=== PATIENT | female | born 1940 | race Caucasian/White ===

== ENCOUNTER 2019-12-14 22:15 | Inpatient (IN) ==
[2019-12-15 04:27] LABS: Adenovirus Not Detected (Not Detect); Bordetella Pertussis Not Detected (Not Detect); Chlamydophila pneumoniae Not Detected (Not Detect); Coronavirus 229E Not Detected (Not Detect); Coronavirus HKU1 Not Detected (Not Detect); Coronavirus NL63 Not Detected (Not Detect); Coronavirus OC43 Not Detected (Not Detect); Human Metapneumovirus Not Detected (Not Detect); Human Rhinovirus/Enterovirus Not Detected (Not Detect); Influenza A Subtype 2009 H1 Not Detected (Not Detect); Influenza B Not Detected (Not Detect); Mycoplasma pneumoniae Not Detected (Not Detect); Parainfluenza Virus 1 Not Detected (Not Detect); Parainfluenza Virus 2 Not Detected (Not Detect); Parainfluenza Virus 3 Not Detected (Not Detect); Parainfluenza Virus 4 Not Detected (Not Detect); Respiratory Syncytial Virus Not Detected (Not Detect); SARS-CoV-2 Not Detected (Not Detect)
[2019-12-15] MEDS ORDERED: Naloxone 0.4 MG/ML INJ IVP PRN (05:45)
[2019-12-15 05:55] LABS: ABG Base Excess -1 mEq/L (-2 to 3); ABG HCO3 23 mEq/L (21-27); ABG Oxygen Saturation 91 % (95-98); ABG PCO2 34 mmHg (35-45); ABG PH 7.44 pH Units (7.32-7.45); ABG PO2 59 mmHg (85-104); ABG TCO2 24 mEq/L (20-26); Blood Gas Modality ASSIST CONTROL; Blood Gas VT 500 cc
[2019-12-15] MEDS ORDERED: Artificial Tears SOLN 15 ML BOTTLE BOTH EYES PRN (06:03)
[2019-12-15] MEDS ORDERED: *HR* Dextrose 50 % in Water (Vial) 50 ML VIAL IVP PRN (06:38)
[2019-12-15] MEDS ORDERED: Dextrose Gel 15 GM/37.5 ML TUBE PO PRN ×2 (06:38)
[2019-12-15] MEDS ORDERED: D5% in Water 1,000 ML IVC PRN (06:38)
[2019-12-15] MEDS ORDERED: 0.9 % Sodium Chloride 1,000 ML IVC SCH (06:45)
[2019-12-15] MEDS ORDERED: Vancomycin 500 MG in 0.9 % Sodium Chloride 250 ML IVPB SCH (07:00)
[2019-12-15] MEDS ORDERED: Azithromycin 500 MG in 0.9 % Sodium Chloride 250 ML IVPB SCH (07:00)
[2019-12-15] MEDS ORDERED: Vancomycin 500 MG in 0.9 % Sodium Chloride Mini Bag 100 ML IVPB ONE (07:09)
[2019-12-15] MEDS ORDERED: Cefepime HCl 1,000 MG in Water for inj. (sterile) 10 ML IVP SCH (08:00)
[2019-12-15 08:06] LABS: Hematocrit 36.8 % (35.3-44.9); Immature Platelets 7.2 % (1.1-6.1); Mean Corpuscular HGB Conc 32.6 g/dL (31.6-35.5); Mean Corpuscular Hemoglobin 31.4 pg (28.0-33.3); Mean Corpuscular Volume 96.3 fL (83.0-100.0); Mean Platelet Volume 11.2 fL (9.4-12.4); Red Blood Count 3.82 M/mcL (3.82-4.97); White Blood Count 3.9 K/mcL (4.3-11.1)
[2019-12-15] MEDS: Norepinephrine 4 MG/254 ML IV.SOLN IVC SCH ×2 (08:32→17:17)
[2019-12-15] MEDS: FentaNYL (PF) 1,000 MCG/100 ML IV.SOLN IVC SCH ×2 (08:35→17:18)
[2019-12-15 08:36] LABS: Albumin 2.9 g/dL (3.5-5.7); Albumin/Globulin Ratio 1.1 (1.1-2.2); BUN/Creatinine Ratio 49 (6-26); Bilirubin,Direct 0.5 mg/dL (0.0-0.2); Bilirubin,Indirect 0.7 mg/dL (0.0-1.0); Bilirubin,Total 1.2 mg/dL (0.3-1.0); Blood Urea Nitrogen 35 mg/dL (8-23); Calcium 8.8 mg/dL (8.6-10.3); Carbon Dioxide 24 mEq/L (23-29); Chloride 105 mEq/L (98-107); Globulin 2.6 g/dL (2.4-3.5); Glucose 134 mg/dL (70-105); Magnesium 2.2 mg/dL (1.6-2.6); Osmolality,Calculated 294 (280-300); Potassium 3.8 mEq/L (3.5-5.1); Sodium 137 mEq/L (136-145); Total Protein 5.5 g/dL (6.4-8.9); eGFR For African Americans > 60 (> 60); eGFR For Non-African Americans > 60 (> 60)
[2019-12-15] MEDS: Pantoprazole 40 MG VIAL IVP SCH (08:36)
[2019-12-15] MEDS: Chlorhexidine Rinse 15 ML MOUTHWASH MM SCH ×2 (08:36→20:39)
[2019-12-15] MEDS: *HR* Heparin 5,000 UNIT/ML VIAL SQ SCH ×3 (08:37→23:50)
[2019-12-15] MEDS: Artificial Tears SOLN 15 ML BOTTLE BOTH EYES SCH ×5 (08:53→23:50)
[2019-12-15 09:02] LABS: Platelet Count 86 K/mcL (140-400)
[2019-12-15 09:09] LABS: Lymphocytes # 0.6 K/mcL (0.6-4.6); Monocytes # 0.2 K/mcL (0.0-1.3); Neutrophils # 2.6 K/mcL (1.6-8.9)
[2019-12-15 09:12] LABS: Platelet Estimate Slight Decrease (Normal); Toxic Granulation Present (Not Present)
[2019-12-15] MEDS: Insulin LISPRO 300 UNITS/3 ML VIAL SQ SCH ×3 (11:59→23:51)
[2019-12-15] MEDS ORDERED: Ringers Solution, Lactated 1,000 ML IVC SCH (14:15)
[2019-12-15] MEDS: Doxycycline 100 MG in 0.9 % Sodium Chloride Mini Bag 100 ML IVPB SCH (14:52)
[2019-12-15] MEDS: Meropenem 500 MG in Water for inj. (sterile) 10 ML IVP SCH (17:22)
[2019-12-16] MEDS: Ringers Solution, Lactated 1,000 ML IVC SCH ×4 (00:03→16:35)
[2019-12-16] MEDS: Artificial Tears SOLN 15 ML BOTTLE BOTH EYES SCH ×5 (04:13→20:30)
[2019-12-16] MEDS: Doxycycline 100 MG in 0.9 % Sodium Chloride Mini Bag 100 ML IVPB SCH (04:13)
[2019-12-16 04:29] LABS: Basophils % 0.2 %; Hematocrit 32.7 % (35.3-44.9); Hemoglobin 10.6 g/dL (11.5-15.4); Immature Granulocytes % 1.8 % (0-4); Lymphocytes # 0.4 K/mcL (0.6-4.6); Lymphocytes % 4.8 %; Mean Corpuscular HGB Conc 32.4 g/dL (31.6-35.5); Mean Corpuscular Hemoglobin 31.5 pg (28.0-33.3); Mean Corpuscular Volume 97.3 fL (83.0-100.0); Mean Platelet Volume 11.5 fL (9.4-12.4); Monocytes # 0.3 K/mcL (0.0-1.3); Platelet Count 110 K/mcL (140-400); Red Blood Count 3.36 M/mcL (3.82-4.97); Red Cell Distribution Width 14.4 % (11.5-14.5); Segmented Neutrophils % 90.2 %
[2019-12-16 04:31] LABS: White Blood Count 8.9 K/mcL (4.3-11.1)
[2019-12-16 04:46] LABS: Dohle Bodies Present (Not Present); Platelet Estimate Slight Decrease (Normal); Toxic Granulation Present (Not Present)
[2019-12-16 04:47] LABS: BUN/Creatinine Ratio 58 (6-26); Blood Urea Nitrogen 30 mg/dL (8-23); Calcium 8.6 mg/dL (8.6-10.3); Carbon Dioxide 26 mEq/L (23-29); Chloride 110 mEq/L (98-107); Glucose 110 mg/dL (70-105); Osmolality,Calculated 299 (280-300); Phosphorous 2.1 mg/dL (2.7-4.5); Potassium 3.5 mEq/L (3.5-5.1); Sodium 141 mEq/L (136-145); eGFR For African Americans > 60 (> 60); eGFR For Non-African Americans > 60 (> 60)
[2019-12-16 04:51] LABS: ABG Base Excess 1 mEq/L (-2 to 3); ABG HCO3 26 mEq/L (21-27); ABG Oxygen Saturation 98 % (95-98); ABG PCO2 42 mmHg (35-45); ABG PO2 100 mmHg (85-104); ABG TCO2 27 mEq/L (20-26); Blood Gas Modality ASSIST CONTROL; Blood Gas VT 350 cc
[2019-12-16] MEDS: FentaNYL (PF) 1,000 MCG/100 ML IV.SOLN IVC SCH (05:20)
[2019-12-16] MEDS: Meropenem 500 MG in Water for inj. (sterile) 10 ML IVP SCH (06:29)
[2019-12-16] MEDS: Insulin LISPRO 300 UNITS/3 ML VIAL SQ SCH ×3 (06:30→18:11)
[2019-12-16] MEDS: Pantoprazole 40 MG VIAL IVP SCH (08:25)
[2019-12-16] MEDS: *HR* Heparin 5,000 UNIT/ML VIAL SQ SCH ×2 (08:25→16:35)
[2019-12-16] MEDS: Chlorhexidine Rinse 15 ML MOUTHWASH MM SCH ×2 (08:25→20:29)
[2019-12-16] MEDS ORDERED: (Ezetimibe [Zetia] 10 MG) PO SCH (09:00)
[2019-12-16] MEDS ORDERED: cefTRIAXone 1,000 MG in 0.9 % Sodium Chloride Mini Bag 100 ML IVPB SCH (15:00)
[2019-12-17] MEDS ORDERED: Dexmedetomidine HCl 400 MCG/100 ML MLS IVC SCH (00:45)
[2019-12-17] MEDS: Ringers Solution, Lactated 1,000 ML IVC SCH ×2 (00:46→07:45)
[2019-12-17] MEDS: *HR* Heparin 5,000 UNIT/ML VIAL SQ SCH ×3 (00:47→16:02)
[2019-12-17] MEDS: Insulin LISPRO 300 UNITS/3 ML VIAL SQ SCH ×3 (00:47→11:59)
[2019-12-17] MEDS: Artificial Tears SOLN 15 ML BOTTLE BOTH EYES SCH ×4 (00:47→11:59)
[2019-12-17] MEDS: FentaNYL (PF) 1,000 MCG/100 ML IV.SOLN IVC SCH (02:22)
[2019-12-17 03:51] LABS: Basophils % 0.2 %; Mean Platelet Volume 11.3 fL (9.4-12.4); Red Cell Distribution Width 14.3 % (11.5-14.5)
[2019-12-17] MEDS: Norepinephrine 4 MG/254 ML IV.SOLN IVC SCH (03:51)
[2019-12-17 03:54] LABS: Hemoglobin 9.6 g/dL (11.5-15.4); Immature Granulocytes % 2.3 % (0-4); Immature Platelets 6.1 % (1.1-6.1); Lymphocytes # 1.2 K/mcL (0.6-4.6); Mean Corpuscular HGB Conc 33.1 g/dL (31.6-35.5); Mean Corpuscular Hemoglobin 31.8 pg (28.0-33.3); Monocytes # 0.5 K/mcL (0.0-1.3); Monocytes % 5.9 %; Neutrophils # 6.5 K/mcL (1.6-8.9); Red Blood Count 3.02 M/mcL (3.82-4.97); Segmented Neutrophils % 77.6 %; White Blood Count 8.4 K/mcL (4.3-11.1)
[2019-12-17 04:04] LABS: BUN/Creatinine Ratio 62 (6-26); Blood Urea Nitrogen 29 mg/dL (8-23); Carbon Dioxide 26 mEq/L (23-29); Chloride 111 mEq/L (98-107); Glucose 66 mg/dL (70-105); Osmolality,Calculated 300 (280-300); Platelet Count 90 K/mcL (140-400); Potassium 3.2 mEq/L (3.5-5.1); Sodium 143 mEq/L (136-145); eGFR For African Americans > 60 (> 60); eGFR For Non-African Americans > 60 (> 60)
[2019-12-17 04:21] LABS: ABG Base Excess 2 mEq/L (-2 to 3); ABG HCO3 26 mEq/L (21-27); ABG Oxygen Saturation 98 % (95-98); ABG PCO2 36 mmHg (35-45); ABG PH 7.46 pH Units (7.32-7.45); ABG PO2 93 mmHg (85-104); ABG TCO2 27 mEq/L (20-26); Blood Gas Modality ASSIST CONTROL; Blood Gas VT 350 cc
[2019-12-17] MEDS: Pantoprazole 40 MG VIAL IVP SCH (07:46)
[2019-12-17] MEDS: Chlorhexidine Rinse 15 ML MOUTHWASH MM SCH (08:11)
[2019-12-17] MEDS: Potassium Chloride Elixir 20 MEQ/15 ML UDC PO ONE ×2 (08:14→19:21)
[2019-12-17] MEDS ORDERED: 0.9 % Sodium Chloride Mini Bag 100 ML ONE (14:31)
[2019-12-17] MEDS ORDERED: cefTRIAXone 1,000 MG in Water for inj. (sterile) 10 ML IVP SCH (15:00)
[2019-12-17] MEDS ORDERED: Ipratropium/Albuterol Neb 3 ML IH PRN (16:43)
[2019-12-17] MEDS ORDERED: *HR* Metoprolol 5 MG/5 ML VIAL IVP PRN (16:43)
[2019-12-17] MEDS ORDERED: *HR* LORazepam 2 MG/ML VIAL IVP PRN (16:43)
[2019-12-17] MEDS ORDERED: D5% in Water 1,000 ML IVC PRN (16:43)
[2019-12-17] MEDS ORDERED: D5% in 0.45% NACL w KCl 20 MEQ/1,000 ML MLS IVC SCH (16:43)
[2019-12-17] MEDS ORDERED: Naloxone 0.4 MG/ML INJ IVP PRN (16:43)
[2019-12-17] MEDS ORDERED: *HR* Dextrose 50 % in Water (Vial) 50 ML VIAL IVP ONE (17:58)
[2019-12-17] MEDS: D5% in 0.45% NACL w KCl 20 MEQ/1,000 ML MLS IVC SCH (18:15)
[2019-12-18 03:11] LABS: Basophils % 0.2 %; Eosinophils % 0.1 %; Hematocrit 31.3 % (35.3-44.9); Hemoglobin 10.2 g/dL (11.5-15.4); Immature Granulocytes % 2.7 % (0-4); Lymphocytes # 1.4 K/mcL (0.6-4.6); Lymphocytes % 14.1 %; Mean Corpuscular HGB Conc 32.6 g/dL (31.6-35.5); Mean Corpuscular Hemoglobin 31.7 pg (28.0-33.3); Mean Corpuscular Volume 97.2 fL (83.0-100.0); Mean Platelet Volume 11.2 fL (9.4-12.4); Monocytes # 0.5 K/mcL (0.0-1.3); Monocytes % 4.5 %; Neutrophils # 7.8 K/mcL (1.6-8.9); Platelet Count 101 K/mcL (140-400); Red Blood Count 3.22 M/mcL (3.82-4.97); Red Cell Distribution Width 14.1 % (11.5-14.5); Segmented Neutrophils % 78.4 %
[2019-12-18 03:31] LABS: BUN/Creatinine Ratio 35 (6-26); Blood Urea Nitrogen 15 mg/dL (8-23); Calcium 7.5 mg/dL (8.6-10.3); Carbon Dioxide 28 mEq/L (23-29); Chloride 105 mEq/L (98-107); Glucose 126 mg/dL (70-105); Osmolality,Calculated 288 (280-300); Potassium 3.3 mEq/L (3.5-5.1); Sodium 138 mEq/L (136-145); eGFR For African Americans > 60 (> 60); eGFR For Non-African Americans > 60 (> 60)
[2019-12-18] MEDS: D5% in 0.45% NACL w KCl 20 MEQ/1,000 ML MLS IVC SCH ×2 (03:56→14:10)
[2019-12-18] MEDS: cefTRIAXone 1,000 MG in Water for inj. (sterile) 10 ML IVP SCH (09:56)
[2019-12-18] MEDS: *HR* Heparin 5,000 UNIT/ML VIAL SQ SCH (17:47)
[2019-12-18] MEDS: Bisacodyl 10 MG RECTAL SUPPOSITORY RC SCH (23:25)
[2019-12-19] MEDS: D5% in 0.45% NACL w KCl 20 MEQ/1,000 ML MLS IVC SCH ×2 (01:56→21:18)
[2019-12-19 03:41] LABS: Basophils % 0.2 %; Eosinophils # 0.1 K/mcL (0.0-0.6); Eosinophils % 0.5 %; Hematocrit 30.5 % (35.3-44.9); Hemoglobin 10.1 g/dL (11.5-15.4); Immature Granulocytes % 2.8 % (0-4); Lymphocytes # 1.3 K/mcL (0.6-4.6); Lymphocytes % 11.9 %; Mean Corpuscular HGB Conc 33.1 g/dL (31.6-35.5); Mean Corpuscular Volume 96.5 fL (83.0-100.0); Mean Platelet Volume 11.3 fL (9.4-12.4); Monocytes # 0.5 K/mcL (0.0-1.3); Monocytes % 4.2 %; Neutrophils # 8.9 K/mcL (1.6-8.9); Platelet Count 120 K/mcL (140-400); Red Blood Count 3.16 M/mcL (3.82-4.97); Segmented Neutrophils % 80.4 %
[2019-12-19 04:06] LABS: BUN/Creatinine Ratio 26 (6-26); Blood Urea Nitrogen 9 mg/dL (8-23); Calcium 7.5 mg/dL (8.6-10.3); Carbon Dioxide 28 mEq/L (23-29); Chloride 105 mEq/L (98-107); Glucose 129 mg/dL (70-105); Magnesium 1.5 mg/dL (1.6-2.6); Osmolality,Calculated 288 (280-300); Phosphorous 2.3 mg/dL (2.7-4.5); Potassium 3.5 mEq/L (3.5-5.1); Sodium 139 mEq/L (136-145); eGFR For African Americans > 60 (> 60); eGFR For Non-African Americans > 60 (> 60)
[2019-12-19] MEDS: *HR* Heparin 5,000 UNIT/ML VIAL SQ SCH ×2 (06:17→17:21)
[2019-12-19] MEDS: Aspirin Enteric Coated 81 MG Tablet PO SCH (08:44)
[2019-12-19] MEDS: cefTRIAXone 1,000 MG in Water for inj. (sterile) 10 ML IVP SCH (08:45)
[2019-12-19] MEDS ORDERED: ALPRAZolam 0.5 MG TABLET PO PRN (09:36)
[2019-12-19 11:18] LABS: Estimated Average Glucose 117 mg/dl
[2019-12-19] MEDS ORDERED: traZODone 50 MG TABLET PO SCH (21:00)
[2019-12-19] MEDS: Bisacodyl 10 MG RECTAL SUPPOSITORY RC SCH (21:43)
[2019-12-20] MEDS: *HR* Heparin 5,000 UNIT/ML VIAL SQ SCH ×2 (06:04→17:40)
[2019-12-20] MEDS: cefTRIAXone 1,000 MG in Water for inj. (sterile) 10 ML IVP SCH (09:31)
[2019-12-20] MEDS: Aspirin Enteric Coated 81 MG Tablet PO SCH (09:31)
[2019-12-20] MEDS ORDERED: traZODone 50 MG TABLET PO PRN (13:54)
[2019-12-20] MEDS: Sennosides 8.6 MG TABLET PO SCH (15:25)
[2019-12-20] MEDS: Bisacodyl 10 MG RECTAL SUPPOSITORY RC SCH (20:01)
[2019-12-20] MEDS: Mirtazapine 15 MG TABLET PO SCH (20:05)
[2019-12-21] MEDS: *HR* Heparin 5,000 UNIT/ML VIAL SQ SCH ×2 (06:23→17:24)
[2019-12-21] MEDS: lisinopriL 10 MG TABLET PO SCH (10:21)
[2019-12-21] MEDS: Aspirin Enteric Coated 81 MG Tablet PO SCH (10:21)
[2019-12-21] MEDS: Sennosides 8.6 MG TABLET PO SCH (10:21)
[2019-12-21] MEDS: cefTRIAXone 1,000 MG in Water for inj. (sterile) 10 ML IVP SCH (10:22)
[2019-12-21] MEDS: carvediloL 6.25 MG TABLET PO SCH (21:56)
[2019-12-21] MEDS: Mirtazapine 15 MG TABLET PO SCH (21:56)
[2019-12-21] MEDS: Bisacodyl 10 MG RECTAL SUPPOSITORY RC SCH (21:56)
[2019-12-22] MEDS: *HR* Heparin 5,000 UNIT/ML VIAL SQ SCH ×2 (05:46→17:27)
[2019-12-22] MEDS: carvediloL 6.25 MG TABLET PO SCH ×2 (09:08→17:27)
[2019-12-22] MEDS: lisinopriL 10 MG TABLET PO SCH (09:08)
[2019-12-22] MEDS: Sennosides 8.6 MG TABLET PO SCH (09:12)
[2019-12-22] MEDS: cefTRIAXone 1,000 MG in Water for inj. (sterile) 10 ML IVP SCH (09:13)
[2019-12-22] MEDS: Aspirin Enteric Coated 81 MG Tablet PO SCH (09:13)
[2019-12-22] MEDS: Bisacodyl 10 MG RECTAL SUPPOSITORY RC SCH (20:50)
[2019-12-22] MEDS: Mirtazapine 15 MG TABLET PO SCH (20:50)
[2019-12-23] MEDS: *HR* Heparin 5,000 UNIT/ML VIAL SQ SCH ×2 (05:14→17:11)
[2019-12-23] MEDS: carvediloL 6.25 MG TABLET PO SCH ×2 (10:11→17:11)
[2019-12-23] MEDS: Aspirin Enteric Coated 81 MG Tablet PO SCH (10:11)
[2019-12-23] MEDS: lisinopriL 10 MG TABLET PO SCH (10:11)
[2019-12-23] MEDS: Sennosides 8.6 MG TABLET PO SCH (10:11)
[2019-12-23] MEDS: cefTRIAXone 1,000 MG in Water for inj. (sterile) 10 ML IVP SCH (10:11)
[2019-12-23] MEDS: Bisacodyl 10 MG RECTAL SUPPOSITORY RC SCH ×2 (21:10→21:13)
[2019-12-23] MEDS: Mirtazapine 15 MG TABLET PO SCH ×2 (21:13→21:23)
[2019-12-24] MEDS: *HR* Heparin 5,000 UNIT/ML VIAL SQ SCH (05:30)
[2019-12-24] MEDS: carvediloL 6.25 MG TABLET PO SCH (09:42)
[2019-12-24] MEDS: Aspirin Enteric Coated 81 MG Tablet PO SCH (09:42)
[2019-12-24] MEDS: Sennosides 8.6 MG TABLET PO SCH (09:43)
[2019-12-24] MEDS: lisinopriL 10 MG TABLET PO SCH (09:43)
[2019-12-24 11:37] VITALS: BP 94/58
== END 2019-12-24 15:56 | DRG 871 ==
LOC: SUATTDRO 12-15 02:26 → CDU 12-15 02:26 → ICNU 12-15 05:07 → 2ANU 12-17 20:19
PROVIDERS: ADMIT Student in an Organized Health Care Education/Training Program; ATTEND Internal Medicine